=== PATIENT | female | born 1975 | race African-American/Black ===

== ENCOUNTER 2017-02-12 07:02 | Emergency (ER) | payer OTHER, SELFPAY ==
[2017-02-12 07:39] LABS: #Eosinphils 0.1 thou/uL (0.0-0.7); #Lymphocytes 2.4 thou/uL (1.20-3.40); #Monocytes 0.5 thou/uL (0.11-0.59); %Basophils 0.3 % (0.0-1.0); %Eosinophils 1.2 % (0.0-10.0); %Lymphocytes 23.5 % (21.0-51.0); %Monocytes 4.9 % (0.0-10.0); Hematocrit 30.3 % (36.0-47.0); Mean Platelet Volume 5.8 fL (7.4-10.4); Red Blood Cell (RBC) Count 2.78 mill/uL (4.20-5.40)
[2017-02-12] MEDS ORDERED: Morphine 10 MG/ML VIAL ONE (07:52)
[2017-02-12 07:54] LABS: Lactic Acid - Sepsis 0.6 mmol/L (0.5-2.2)
[2017-02-12 07:58] LABS: ALT (SGPT) 12 U/L (8-55); AST (SGOT) 19 U/L (5-34); Alkaline Phosphatase 168 U/L (40-150); Anion Gap 10 mmol/L (10-20); BUN (Urea Nitrogen) 8 mg/dL (7.0-18.7); Calc. Creatinine Clearance 0 mL/min (70-130); Calcium 9.7 mg/dL (7.8-10.44); Carbon Dioxide 27 mmol/L (22-29); Chloride 103 mmol/L (98-107); Estimated GFR-MDRD Greater than 90; Globulin 3.7 g/dL (2.4-3.5); Lipase 23 U/L (8-78); Protein, Total 7.1 g/dL (6.0-8.3)
[2017-02-12 08:01] LABS: Macrocytosis SLIGHT = 6-15 cells (100X) (0-5/hpf); Polychromasia SLIGHT = 2-3 cells (100X) (0-2/hpf)
--- NOTE | 2017-02-12 10:01 | CT ---
ABDOMEN AND PELVIS CT SCAN WITH IV CONTRAST: Date: 02/12/17 HISTORY: 41-year-old female with uncomplicated 5 days ago at [facility], now with diffuse abdominal pa in, without fever. FINDINGS: There is some gas in a mildly dilated distal esophagus, probably related to reflux. The lung bases a ppear clear. There is some heterogeneous attenuation in the liver, nonspecific, slightly more promin ent in the inferior anterior right lobe of the liver, possibly related to heterogeneous fatty change . Correlate with liver enzymes. The gallbladder, pancreas, spleen, and adrenal glands are unremarkab le. The kidneys show no renal calculus or acute obstruction. There is persistent marked enlargeme nt of the uterus consistent with recent . There are multiple circumscribed masses involving the uterus up to 3.7 cm in size consistent with multiple intrauterine fibroids. There is some thick ening of the inferior anterior abdominal wall musculature, particularly the rectus muscles, with aly e overlying subcutaneous fat stranding and edematous changes, again probably just routine postoperat darya change. There is no evidence for significant hematoma within the anterior abdominal wall or pelv is. No significant free intraperitoneal fluid within the abdomen or pelvis. There is some scattered colonic diverticulosis without acute diverticulitis. There is a normal appearing appendix. Small randi ateral fat-containing inguinal hernias. IMPRESSION: Persistent marked uterine enlargement consistent with recent . Multiple intrauterine masses up to 3.7 cm consistent with multiple intrauterine fibroids. Postoperative changes involving the lo wer anterior abdominal wall with some subcutaneous fat stranding, as well as some thickening and fat stranding within the lower rectus musculature, but without evidence for significant hematoma or oth er significant postoperative fluid collection. No free intraperitoneal fluid or evidence for an intr a-abdominal or pelvic abscess. Somewhat heterogeneous liver attenuation, nonspecific, correlate with liver enzymes. Colonic diverticulosis without diverticulitis. A 2.5 x 3.0 cm diameter mostly fatty with some mixture of soft tissue mass in the left ovary region, evidence for a small dermoid. POS: [facility]
[2017-02-12 10:28] LABS: Bilirubin Negative (Negative); Blood, Urine Negative (Negative); Glucose, Urine (Dipstick) Negative (Negative); Ketone, Urine Negative (Negative); Nitrite Negative (Negative); Protein, Urine (Dipstick) Negative (Neg-Trace); Urobilinogen 0.2 mg/dL (0.2-1.0)
[2017-02-12] MEDS ORDERED: ISOVUE-370 76%-LOCM 1 ML ONE (15:42)
== END 2017-02-12 10:50 | disposition home or self-care (01) ==
LOC: ERS 07:02
DX: R10.84 Generalized abdominal pain (principal); E03.9 Hypothyroidism, unspecified; I10 Essential (primary) hypertension; F17.210 Nicotine dependence, cigarettes, uncomplicated; Z79.899 Other long term (current) drug therapy; Z79.82 Long term (current) use of aspirin
CPT/HCPCS: 36415; 74177; 80053; 81003; 83605; 83690; 85025; 96361; 96372; 96374; J2270

== ENCOUNTER 2018-04-22 10:15 | Emergency (ER) | payer OTHER, SELFPAY ==
[2018-04-22 11:09] LABS: Hemoglobin 8.1 g/dL (12.0-16.0); Mean Corpuscular HGB CONC 29.6 g/dL (32.0-36.0); Mean Corpuscular Hemoglobin 25.9 pg (27.0-31.0); Mean Corpuscular Volume 87.6 fL (78.0-98.0); Mean Platelet Volume 6.4 fL (7.4-10.4); Platelet Count 333 thou/uL (130-400); RBC Distribution Width 16.6 % (11.5-14.5); Red Blood Cell (RBC) Count 3.11 mill/uL (4.20-5.40); White Blood Cell (WBC) Count 4.2 thou/uL (4.8-10.8)
[2018-04-22 11:11] LABS: ALT (SGPT) 8 U/L (8-55); AST (SGOT) 15 U/L (5-34); Albumin 3.8 g/dL (3.5-5.0); Alkaline Phosphatase 109 U/L (40-150); Anion Gap 11 mmol/L (10-20); BUN (Urea Nitrogen) 10 mg/dL (7.0-18.7); Bilirubin, Total 0.3 mg/dL (0.2-1.2); Calc. Creatinine Clearance 0 mL/min (70-130); Calcium 8.8 mg/dL (7.8-10.44); Carbon Dioxide 27 mmol/L (22-29); Chloride 107 mmol/L (98-107); Estimated GFR-MDRD 82; Globulin 3.2 g/dL (2.4-3.5); Glucose 94 mg/dL (70-105); Potassium 4.1 mmol/L (3.5-5.1); Sodium 141 mmol/L (136-145)
[2018-04-22 11:14] LABS: BHCG - Serum Negative (NEGATIVE); Pregs Control Background? CLEAR/WHITE (CLR/WHITE); Pregs Control Bar Appear? YES (CONTROL BAR)
[2018-04-22 11:17] LABS: #Basophils 0.1 thou/uL (0.0-0.2); #Eosinphils 0.1 thou/uL (0.0-0.7); #Lymphocytes 1.1 thou/uL (1.20-3.40); #Monocytes 0.3 thou/uL (0.11-0.59); #Neutrophils 2.6 thou/uL (1.40-6.50); %Eosinophils 2.2 % (0.0-10.0); %Lymphocytes 26.6 % (21.0-51.0); %Monocytes 7.9 % (0.0-10.0); %Neutrophils 61.3 % (42.0-75.0); MDiff Complete? YES
[2018-04-22 11:18] LABS: Anisocytosis SLIGHT = 6-15 cells (100X) (0-5/hpf); Hypochromia SLIGHT = 6-15 cells (100X) (0-5/hpf); Platelet Morphology Comment Appears Adequate
[2018-04-22 11:39] LABS: Thyroid Stimulating Hormone 2.3415 uIU/mL (0.35-4.94)
[2018-04-22 14:30] LABS: Iron 13 ug/dL (50-170); Iron Binding Capacity, Total 460 mcg/dL (265-497)
== END 2018-04-22 12:30 | disposition home or self-care (01) ==
LOC: SCSER 10:15
DX: D64.9 Anemia, unspecified (principal); I10 Essential (primary) hypertension; E03.9 Hypothyroidism, unspecified; F17.210 Nicotine dependence, cigarettes, uncomplicated
CPT/HCPCS: 80053; 82728; 83540; 83550; 83735; 84443; 84703; 85025; 99284

== ENCOUNTER 2018-10-31 17:26 | Emergency (ER) | payer SELFPAY ==
[2018-10-31 18:04] LABS: Bilirubin Negative (Negative); Blood, Urine 3+ (Negative); Clarity Clear (Clear); Glucose, Urine (Dipstick) Normal (Negative); Leukocyte Negative Leu/uL (Negative); Nitrite Negative (Negative); Protein, Urine (Dipstick) Negative (Neg-Trace); RBC/HPF 0-3 HPF (0-3); Urobilinogen Normal mg/dL (Less than 2); WBC/HPF 0-3 HPF (0-3)
[2018-10-31 18:18] LABS: Bacteria/HPF Rare-Few HPF (None Seen)
== END 2018-10-31 18:40 | disposition home or self-care (01) ==
LOC: ERS 17:26
DX: R30.0 Dysuria (principal); I10 Essential (primary) hypertension; F17.210 Nicotine dependence, cigarettes, uncomplicated
CPT/HCPCS: 81003; 81015; 99283

== ENCOUNTER 2020-02-06 09:00 | Emergency (ER) | payer SELFPAY ==
[2020-02-06 09:34] LABS: #Basophils 0.1 thou/uL (0.0-0.2); #Eosinphils 0.1 thou/uL (0.0-0.7); #Lymphocytes 1.5 thou/uL (1.20-3.40); #Monocytes 0.3 thou/uL (0.11-0.59); #Neutrophils 1.8 thou/uL (1.40-6.50); %Basophils 1.6 % (0.0-1.0); %Eosinophils 3.6 % (0.0-10.0); %Lymphocytes 39.5 % (21.0-51.0); %Neutrophils 47.4 % (42.0-75.0); Hemoglobin 12.3 g/dL (12.0-16.0); Mean Corpuscular HGB CONC 33.2 g/dL (32.0-36.0); Mean Corpuscular Hemoglobin 33.5 pg (27.0-31.0); Mean Platelet Volume 6.7 fL (7.4-10.4); Platelet Count 276 thou/uL (130-400); RBC Distribution Width 15.5 % (11.5-14.5); Red Blood Cell (RBC) Count 3.67 mill/uL (4.20-5.40); White Blood Cell (WBC) Count 3.8 thou/uL (4.8-10.8)
[2020-02-06 09:53] LABS: ALT (SGPT) 11 U/L (8-55); AST (SGOT) 14 U/L (5-34); Albumin 3.7 g/dL (3.5-5.0); Alkaline Phosphatase 76 U/L (40-110); Anion Gap 12 mmol/L (10-20); BUN (Urea Nitrogen) 10 mg/dL (7.0-18.7); Bilirubin, Total 0.5 mg/dL (0.2-1.2); Calc. Creatinine Clearance 0 mL/min (70-130); Calcium 8.9 mg/dL (7.8-10.44); Carbon Dioxide 26 mmol/L (22-29); Chloride 106 mmol/L (98-107); Estimated GFR-MDRD 85; Globulin 3.1 g/dL (2.4-3.5); Glucose 88 mg/dL (70-105); Lipase 21 U/L (8-78); Potassium 3.7 mmol/L (3.5-5.1); Protein, Total 6.8 g/dL (6.0-8.3); Sodium 140 mmol/L (136-145)
[2020-02-06 10:20] LABS: Bilirubin Negative (Negative); Blood, Urine Negative (Negative); Clarity Turbid (Clear); Glucose, Urine (Dipstick) Normal (Negative); Ketone, Urine Negative (Negative); Leukocyte Negative Leu/uL (Negative); Nitrite Negative (Negative); Protein, Urine (Dipstick) Negative (Neg-Trace); Specific Gravity, Urine 1.024 (1.002-1.036); Urobilinogen Normal mg/dL (Less than 2)
[2020-02-06 10:22] LABS: Pregnancy Test - Urine (BHCG) Negative (Negative); Pregu Control Background? CLEAR/WHITE (CLR/WHITE); Pregu Control Bar Appear? YES (CONTROL BAR); Specific Gravity 1.024 (1.002-1.036)
[2020-02-06] MEDS ORDERED: Iopamidol-370 76% 500 ML 1 ML ONE (10:26)
--- NOTE | 2020-02-06 11:45 | CT ---
CT OF THE ABDOMEN AND PELVIS WITH IV CONTRAST INDICATION: Lower abdominal pain and right lower back pain for 10 days COMPARISON: Prior CT the abdomen and pelvis dated February 12, 2017 FINDINGS: ABDOMEN: Lung bases: Mild subsegmental atelectasis Liver: No focal lesion. Gallbladder: Normal appearing. Pancreas: Normal. Adrenal glands: Normal. Spleen: Normal. Kidneys and ureters: Normal. No hydronephrosis. Vasculature: There are mild vascular calcifications seen involving the visualized vasculature. Lymph nodes:No lymphadenopathy. Free fluid in abdomen:No free fluid is evident. PELVIS: Small and large bowel: There are scattered colonic diverticula without evidence of active diverticuli tis. The small bowel appears normal in caliber. Appendix:Normal Bladder: Normal. Rectal and perirectal soft tissues:Normal. Reproductive structures: There is a stable fibroid uterus. There is been interval development of an a dditional fat density mass within the left adnexa measuring 2.3 cm that was not seen previously. The previously seen 2.8 cm fat density mass in left adnexa is stable on image 52 of series 2. Visuali zed aspects of the right adnexa are unremarkable appearing. Free fluid in pelvis: No free fluid is evident. Lymphadenopathy pelvis: No lymphadenopathy is evident. Osseous structures: Small bone island within the posterior left ilium is stable. No acute osseous abn ormality is evident. Soft tissues:Normal. IMPRESSION: 1. 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 [employer] consultation is recommended. 2. Fibroid uterus. 3. Colonic diverticulosis without evidence of active diverticulitis.
== END 2020-02-06 12:50 | disposition home or self-care (01) ==
LOC: ERS 09:00
DX: C80.1 Malignant (primary) neoplasm, unspecified (principal); R10.814 Left lower quadrant abdominal tenderness; I10 Essential (primary) hypertension; E03.9 Hypothyroidism, unspecified; F17.210 Nicotine dependence, cigarettes, uncomplicated; Z79.899 Other long term (current) drug therapy
CPT/HCPCS: 36415; 74177; 80053; 81003; 81025; 83690; 85025; Q9967

== ENCOUNTER 2020-11-21 20:37 | Emergency (ER) | payer MEDICAID, SELFPAY ==
[2020-11-21 23:52] LABS: #Basophils 0.1 thou/uL (0.0-0.2); #Eosinphils 0.2 thou/uL (0.0-0.7); #Monocytes 0.7 thou/uL (0.11-0.59); #Neutrophils 5.2 thou/uL (1.40-6.50); %Basophils 0.6 % (0.0-1.0); %Lymphocytes 24.3 % (21.0-51.0); %Monocytes 8.9 % (0.0-10.0); %Neutrophils 64.2 % (42.0-75.0); Hemoglobin 8.9 g/dL (12.0-16.0); Mean Corpuscular HGB CONC 32.6 g/dL (32.0-36.0); Mean Corpuscular Hemoglobin 30.4 pg (27.0-31.0); Mean Corpuscular Volume 93.3 fL (78.0-98.0); Mean Platelet Volume 6.8 fL (7.4-10.4); Platelet Count 333 thou/uL (130-400); RBC Distribution Width 15.3 % (11.5-14.5); Red Blood Cell (RBC) Count 2.93 mill/uL (4.20-5.40); White Blood Cell (WBC) Count 8.1 thou/uL (4.8-10.8)
[2020-11-21 23:57] LABS: BHCG - Serum Negative (NEGATIVE); Pregs Control Background? CLEAR/WHITE (CLR/WHITE); Pregs Control Bar Appear? YES (CONTROL BAR)
[2020-11-22 00:16] LABS: ALT (SGPT) 9 U/L (8-55); AST (SGOT) 14 U/L (5-34); Albumin 3.8 g/dL (3.5-5.0); Alkaline Phosphatase 108 U/L (40-110); Anion Gap 10 mmol/L (10-20); BUN (Urea Nitrogen) 12 mg/dL (7.0-18.7); Bilirubin, Total 0.4 mg/dL (0.2-1.2); Calc. Creatinine Clearance 0 mL/min (70-130); Calcium 9.2 mg/dL (7.8-10.44); Carbon Dioxide 27 mmol/L (22-29); Chloride 105 mmol/L (98-107); Globulin 3.5 g/dL (2.4-3.5); Glucose 98 mg/dL (70-105); Potassium 3.9 mmol/L (3.5-5.1); Protein, Total 7.3 g/dL (6.0-8.3); Sodium 138 mmol/L (136-145)
== END 2020-11-22 01:56 | disposition home or self-care (01) ==
LOC: ERS 20:37
DX: N61.1 Abscess of the breast and nipple (principal); D64.9 Anemia, unspecified; E03.9 Hypothyroidism, unspecified; I10 Essential (primary) hypertension; F17.210 Nicotine dependence, cigarettes, uncomplicated
CPT/HCPCS: 36415; 80053; 84703; 85025

== ENCOUNTER 2021-08-14 11:17 | Outpatient (CLI) | payer MEDICAID | END 2021-08-14 11:18 | disposition home or self-care (01) | LOC: BICMAMMO 11:17 | PROVIDERS: ATTEND Family Medicine | DX: Z12.31 Encounter for screening mammogram for malignant neoplasm of breast (principal); N64.89 Other specified disorders of breast | CPT/HCPCS: 77067 ==

== ENCOUNTER 2021-08-19 08:31 | Outpatient (CLI) | payer MEDICAID | END 2021-08-19 08:32 | disposition home or self-care (01) | LOC: BICMAMMO 08:31 | PROVIDERS: ATTEND Family Medicine | DX: R92.2 Inconclusive mammogram (principal) | CPT/HCPCS: G0279 ==

== ENCOUNTER 2021-09-21 23:43 | Emergency (ER) | payer MEDICAID ==
[2021-09-22 00:12] LABS: #Lymphocytes 1.5 thou/uL (1.20-3.40); #Monocytes 0.3 thou/uL (0.11-0.59); #Neutrophils 1.9 thou/uL (1.40-6.50); %Basophils 0.6 % (0.0-1.0); %Eosinophils 0.7 % (0.0-10.0); %Lymphocytes 40.3 % (21.0-51.0); %Monocytes 8.8 % (0.0-10.0); %Neutrophils 49.6 % (42.0-75.0); Hemoglobin 11.6 g/dL (12.0-16.0); Mean Corpuscular HGB CONC 32.8 g/dL (32.0-36.0); Mean Corpuscular Hemoglobin 32.3 pg (27.0-31.0); Mean Corpuscular Volume 98.5 fL (78.0-98.0); Mean Platelet Volume 6.7 fL (7.4-10.4); Platelet Count 283 thou/uL (130-400); Red Blood Cell (RBC) Count 3.58 mill/uL (4.20-5.40); White Blood Cell (WBC) Count 3.8 thou/uL (4.8-10.8)
[2021-09-22 00:33] LABS: ALT (SGPT) 11 U/L (8-55); AST (SGOT) 19 U/L (5-34); Albumin 4.3 g/dL (3.5-5.0); Alkaline Phosphatase 95 U/L (40-110); Anion Gap 17 mmol/L (10-20); BUN (Urea Nitrogen) 8 mg/dL (7.0-18.7); Bilirubin, Total 0.6 mg/dL (0.2-1.2); Calc. Creatinine Clearance 0 mL/min (70-130); Calcium 9.8 mg/dL (7.8-10.44); Carbon Dioxide 23 mmol/L (22-29); Chloride 106 mmol/L (98-107); Globulin 3.4 g/dL (2.4-3.5); Glucose 94 mg/dL (70-105); Potassium 3.7 mmol/L (3.5-5.1); Protein, Total 7.7 g/dL (6.0-8.3); Sodium 142 mmol/L (136-145)
== END 2021-09-22 01:20 | disposition home or self-care (01) ==
LOC: ERS 23:43
DX: I47.1 Supraventricular tachycardia (principal); E03.9 Hypothyroidism, unspecified; I10 Essential (primary) hypertension; F17.210 Nicotine dependence, cigarettes, uncomplicated
CPT/HCPCS: 36415; 71045; 80053; 84484; 85025; 93005

== ENCOUNTER 2021-09-24 19:22 | Emergency (ER) | payer MEDICAID, SELFPAY ==
[2021-09-24] MEDS ORDERED: Adenosine 6 MG/2 ML VIAL ONE (19:39)
[2021-09-24 19:48] LABS: #Lymphocytes 1.7 thou/uL (1.20-3.40); #Monocytes 0.5 thou/uL (0.11-0.59); #Neutrophils 4.3 thou/uL (1.40-6.50); %Basophils 0.3 % (0.0-1.0); %Eosinophils 0.4 % (0.0-10.0); %Lymphocytes 25.9 % (21.0-51.0); %Monocytes 7.9 % (0.0-10.0); %Neutrophils 65.5 % (42.0-75.0); Hemoglobin 11.8 g/dL (12.0-16.0); Mean Corpuscular HGB CONC 32.3 g/dL (32.0-36.0); Mean Corpuscular Volume 98.8 fL (78.0-98.0); Mean Platelet Volume 6.9 fL (7.4-10.4); Platelet Count 418 thou/uL (130-400); RBC Distribution Width 13.1 % (11.5-14.5); Red Blood Cell (RBC) Count 3.68 mill/uL (4.20-5.40); White Blood Cell (WBC) Count 6.5 thou/uL (4.8-10.8)
[2021-09-24] MEDS ORDERED: Metoprolol Tartrate 5 MG/5 ML VIAL ONE (20:03)
[2021-09-24 20:10] LABS: ALT (SGPT) 9 U/L (8-55); AST (SGOT) 16 U/L (5-34); Albumin 4.4 g/dL (3.5-5.0); Alkaline Phosphatase 100 U/L (40-110); Anion Gap 17 mmol/L (10-20); BUN (Urea Nitrogen) 10 mg/dL (7.0-18.7); Bilirubin, Total 0.7 mg/dL (0.2-1.2); Calc. Creatinine Clearance 0 mL/min (70-130); Calcium 9.8 mg/dL (7.8-10.44); Carbon Dioxide 25 mmol/L (22-29); Chloride 104 mmol/L (98-107); Globulin 3.8 g/dL (2.4-3.5); Glucose 88 mg/dL (70-105); Potassium 3.9 mmol/L (3.5-5.1); Protein, Total 8.2 g/dL (6.0-8.3); Sodium 142 mmol/L (136-145)
== END 2021-09-24 21:23 | disposition home or self-care (01) ==
LOC: ERS 19:22
DX: I47.1 Supraventricular tachycardia (principal); E05.90 Thyrotoxicosis, unspecified without thyrotoxic crisis or storm; I10 Essential (primary) hypertension; F17.210 Nicotine dependence, cigarettes, uncomplicated
CPT/HCPCS: 80053; 84443; 84484; 85025; 93005; 96361; 96374; 96375; J0153